=== PATIENT | male | born 1980 | race Caucasian/White ===

== ENCOUNTER → 2017-12-05 | Outpatient (CLI) | payer BC | LOC: M WUC 11:06 | DX: M25.562 Pain in left knee (principal) | CPT/HCPCS: 73560 ==

== ENCOUNTER → 2021-08-03 | Outpatient (REF) | payer BC | LOC: M LAB REF 12:16 | PROVIDERS: ATTEND Physician Assistant | DX: R68.83 Chills (without fever) (principal) ==

== ENCOUNTER → 2022-03-29 | Outpatient (REF) | payer BC ==
[2022-03-30 20:11] LABS: ENDOMYSIAL ABY IgA Negative (Negative); TISSUE TRANSGLUTAMINASE IgA <2 U/mL (0-3)
== END ==
LOC: M LAB REF 11:12
PROVIDERS: ATTEND Internal Medicine
DX: R19.7 Diarrhea, unspecified (principal)

== ENCOUNTER → 2022-09-16 | Outpatient (CLI) | payer BC | LOC: M WUC 15:54 | PROVIDERS: ATTEND Nurse Practitioner Family | DX: M79.671 Pain in right foot (principal) ==

== ENCOUNTER 2022-10-04 07:03 | Emergency (ER) | payer BC ==
[~2022-10-04] VITALS: Ht 177.8 cm; Wt 99.1 kg
[2022-10-04] MEDS ORDERED: NS 1,000 ML IV ONE (07:45)
[2022-10-04] MEDS ORDERED: KETOROLAC 30 MG/ML 1ML VIAL IV ONE (07:45)
[2022-10-04] MEDS ORDERED: ONDANSETRON 4MG 2ML VIAL IV ONE (07:45)
[2022-10-04 08:06] LABS: BASO # 0.1 10^3/uL (0.0-0.2); BASO % 0.4 % (0.0-1.0); EOS # 0.1 10^3/uL (0.0-0.5); EOS % 0.8 % (0.0-3.0); HEMATOCRIT 44.5 % (42.0-52.0); HEMOGLOBIN 15.4 g/dl (13.5-17.5); LYMPH # 1.1 10^3/uL (1.5-5.0); LYMPH % 9.1 % (24.0-44.0); MEAN CORPUSCULAR HEMOGLOBIN 28.8 pg (27.0-33.0); MEAN CORPUSCULAR HGB CONC 34.6 g/dl (32.0-36.5); MEAN CORPUSCULAR VOLUME 83.3 fl (80.0-96.0); MONO # 1.1 10^3/uL (0.0-0.8); MONO % 9.1 % (2.0-8.0); NEUTROPHILS # 9.7 10^3/uL (1.5-8.5); NEUTROPHILS % 79.9 % (36.0-66.0); PLATELET COUNT, AUTOMATED 200 10^3/uL (150-450); RED BLOOD COUNT 5.34 10^6/uL (4.30-6.10); WHITE BLOOD COUNT 12.1 10^3/uL (4.0-10.0)
[2022-10-04] MEDS ORDERED: ISOVUE-370 76% 100ML VIAL As Ordered ONE (08:06)
[2022-10-04 08:30] LABS: CK-MB VALUE MASS < 1.0 NG/ML (<3.6)
[2022-10-04 08:31] LABS: LIPASE 104 U/L (12-53)
[2022-10-04 08:33] LABS: ALBUMIN 4.1 G/DL (3.2-5.2); ALKALINE PHOSPHATASE 99 U/L (46-116); ALT/SGPT 28 U/L (7.0-40); AST/SGOT 10 U/L (<34); BILIRUBIN,DIRECT 0.3 MG/DL (<0.4); BILIRUBIN,TOTAL 0.9 MG/DL (0.3-1.2); TOTAL PROTEIN 6.7 G/DL (5.7-8.2)
[2022-10-04 09:01] LABS: CPK CREATINE PHOSPHOKINASE 51 U/L (46-171); MB/CK RELATIVE INDEX 1.96 (< OR =4)
[2022-10-04 09:34] LABS: APPEARANCE, URINE CLEAR (CLEAR); BACTERIA, URINE AUTO NEGATIVE (NEGATIVE); BILIRUBIN, URINE AUTO NEGATIVE (NEGATIVE); BLOOD, URINE BLOOD NEGATIVE (NEGATIVE); COLOR, URINE YELLOW (YELLOW); GLUCOSE, URINE (UA) AUTO NEGATIVE (NEGATIVE); KETONE, URINE AUTO NEGATIVE (NEGATIVE); LEUKOCYTE ESTERASE, URINE AUTO NEGATIVE (NEGATIVE); MUCUS, URINE SMALL (NEGATIVE); NITRITE, URINE AUTO NEGATIVE (NEGATIVE); PROTEIN, URINE AUTO NEGATIVE (NEGATIVE); RBC, URINE AUTO 0 /HPF (0-3); SQUAMOUS EPITHELIAL CELL UR AU 0 /HPF (0-6); UROBILINOGEN, URINE AUTO 0.2 mg/dL (0.0-2.0); WBC, URINE AUTO 0 /HPF (0-3)
[2022-10-04 09:35] LABS: SPECIFIC GRAVITY URINE AUTO >1.060 (1.002-1.035)
[2022-10-04] MEDS ORDERED: MIRA3350 PO (09:41)
[2022-10-04] MEDS ORDERED: OMEP1CAP73 PO (09:41)
[2022-10-04 09:49] VITALS: BP 131/89; TEMP 98.6; O2SAT 98
== END 2022-10-04 09:56 | disposition home or self-care (01) ==
LOC: M ED 07:03
DX: R10.11 Right upper quadrant pain (principal); R93.5 Abnormal findings on diagnostic imaging of other abdominal regions, including retroperitoneum; F41.9 Anxiety disorder, unspecified
CPT/HCPCS: 74177; 80047; 80076; 81001; 82550; 82553; 83690; 84484; 85025; 93005; 96374; 96375; 99284; J1885; J2405; Q9967

== ENCOUNTER → 2023-08-08 | Outpatient (REF) | payer BC ==
[~2023-08-08] MED LIST: MIRA3350 PO; OMEP1CAP73 PO
== END ==
LOC: M LAB REF 16:23
PROVIDERS: ATTEND Physician Assistant Medical
DX: R68.82 Decreased libido (principal)